=== PATIENT | female | born 1955 | race Two or more races ===

== ENCOUNTER 2019-05-01 06:19 | Emergency (ER) | payer OTHER ==
[~2019-05-01] VITALS: Ht 157.5 cm; Wt 68.0 kg
[~2019-05-01 06:19] MED LIST: HYZAAR 100-251 UDTAB PO; JANUVIA25 MG PO; LAMICTAL100 MG PO; LIPITOR40 MG PO; PLAVIX75 MG PO; PREVACID30 MG PO; RESTORIL30 MG PO; SYNTHROID50 MCG PO; TOPROL XL50 MG PO
[2019-05-01] MEDS ORDERED: METFORMIN HCL500 M2 (06:39)
[2019-05-01] MEDS ORDERED: ZESTORETIC 20-1 EAC1 (06:39)
[2019-05-01] MEDS ORDERED: TRADJENTA5 MG (06:40)
[2019-05-01] MEDS ORDERED: SEROQUEL PO (06:41)
[2019-05-01] MEDS ORDERED: BONIVA150 MG (06:42)
[2019-05-01] MEDS ORDERED: LYRICA100 MG (06:42)
== END 2019-05-01 17:01 | disposition home or self-care (01) ==
LOC: ER 06:19 → CPU-OBS 06:34 → ER 06:34
DX: R07.89 Other chest pain (principal)

== ENCOUNTER 2019-11-02 12:33 | Emergency (ER) | payer OTHER ==
[~2019-11-02] VITALS: Ht 157.5 cm; Wt 63.5 kg
[~2019-11-02 12:33] MED LIST changes: +BONIVA150 MG; +LYRICA100 MG; +METFORMIN HCL500 M2; +SEROQUEL PO; +TRADJENTA5 MG; +ZESTORETIC 20-1 EAC1
[2019-11-02] MEDS ORDERED: TOPROL XL100 M1 (12:58)
== END 2019-11-02 20:08 | disposition home or self-care (01) ==
LOC: ER 12:33
DX: R42 Dizziness and giddiness (principal)

== ENCOUNTER → 2022-10-29 | Outpatient (CLI) | payer OTHER ==
[~2022-10-29] MED LIST changes: +ANTIVERT25 M2 PO; +BAYER PO; +CARVEDILOL6.25 M1 PO; +NASAL MIST126 ML; +SIMVAST PO; +TOPROL XL100 M1; +TRIJARDY XR 101 EACH PO
== END | disposition home or self-care (01) ==
LOC: NUCLEAR 13:00
PROVIDERS: ATTEND Internal Medicine Cardiovascular Disease
DX: G30.9 Alzheimer's disease, unspecified (principal); E11.9 Type 2 diabetes mellitus without complications; I10 Essential (primary) hypertension; E78.2 Mixed hyperlipidemia
CPT/HCPCS: 78803; A9557

== ENCOUNTER 2022-11-03 06:30 | Day surgery (SDC) | payer OTHER ==
[~2022-11-03] VITALS: Ht 157.5 cm; Wt 64.0 kg
== END 2022-11-03 12:20 | disposition home or self-care (01) ==
LOC: CIR.AMB 06:30
PROVIDERS: ATTEND Orthopaedic Surgery Hand Surgery
DX: M19.041 Primary osteoarthritis, right hand (principal); I10 Essential (primary) hypertension; Z20.822 Contact with and (suspected) exposure to COVID-19; E11.9 Type 2 diabetes mellitus without complications

== ENCOUNTER → 2022-11-17 | Outpatient (CLI) | payer OTHER | END | disposition home or self-care (01) | LOC: RAD 15:41 | PROVIDERS: ATTEND Orthopaedic Surgery Hand Surgery | DX: M19.041 Primary osteoarthritis, right hand (principal) ==

== ENCOUNTER 2023-01-12 05:55 | Day surgery (SDC) | payer OTHER ==
[~2023-01-12] VITALS: Ht 157.5 cm; Wt 64.4 kg
[~2023-01-12 05:55] MED LIST changes: +TOPROL XL50 M1 PO
== END 2023-01-12 12:20 | disposition home or self-care (01) ==
LOC: CIR.AMB 05:55
PROVIDERS: ATTEND Orthopaedic Surgery Hand Surgery
DX: M19.042 Primary osteoarthritis, left hand (principal); E11.9 Type 2 diabetes mellitus without complications; E78.00 Pure hypercholesterolemia, unspecified; Z20.822 Contact with and (suspected) exposure to COVID-19; I10 Essential (primary) hypertension

== ENCOUNTER 2024-02-05 16:26 | Emergency (ER) | payer OTHER ==
[~2024-02-05] VITALS: Ht 160 cm; Wt 59.0 kg
[2024-02-05] MEDS ORDERED: PEPCID AC20 MG PO (16:47)
[2024-02-05] MEDS ORDERED: ARICEPT10 MG (16:47)
[2024-02-05] MEDS ORDERED: COZAAR25 MG (16:47)
[2024-02-05] MEDS ORDERED: GRALISE600 MG PO (16:48)
[2024-02-05] MEDS ORDERED: CLEVIDIPINE BUTYRATE 50 MG/100 ML VIAL IV SCH (17:00)
[2024-02-05] MEDS ORDERED: FAMOtidine 10 MG/ML (4ML VIAL) IV ONE (17:15)
[2024-02-05] MEDS ORDERED: 0.9 % SODIUM CHLORIDE 1,000 ML IV ONE (17:15)
[2024-02-05 17:23] LABS: HEMATOCRIT 41.3 % (36.0-45.00); HEMOGLOBIN 14.1 g/dL (12.0-15.00); MEAN CELL VOLUME 79.4 fL (80.00-100.00); MEAN CORPUSCULAR HEMOGLOBIN 27.1 pg (27.00-32.0); MEAN CORPUSCULAR HGB CONC 34.1 g/dl (32.0-36.0); PLATELET COUNT 385 K/uL (150-450); RED CELL DISTRIBUTION WIDTH 15.8 % (11.5-14.5)
[2024-02-05 17:49] LABS: INR 0.96; PARTIAL THROMBOPLASTIN TIME 26.8 SECONDS (22.0-34.0); PROTHROMBIN TIME 10.5 SECONDS (9.0-11.5)
[2024-02-05 17:54] LABS: ALBUMIN 4.2 gm/dL (3.4-5.0); BILIRUBIN TOTAL 0.44 mg/dL (0.3-1.2); CALCIUM 9.9 mg/dL (8.5-10.1); CREATININE SERUM 0.74 mg/dL (0.55-1.02); GFR 77.59; GLOBULINA 3.2 G/DL (2.4-3.5); POTASSIUM 3.68 mEq/L (3.5-5.1); TOTAL PROTEIN 7.4 gm/dL (6.4-8.2)
[2024-02-05 18:54] LABS: URINE APPEARANCE Clear; URINE BILIRRUBIN Negative (NEGATIVE); URINE BLOOD Negative; URINE COLOR Yellow; URINE KETONE 15 (NEGATIVE); URINE LEUKOCYTE Negative; URINE NITRATE Negative; URINE PROTEIN Trace (NEGATIVE); URINE UROBILINOGEN 0.2 E.U./dl
[2024-02-05 18:56] LABS: URINE BACTERIA 22.6 uL (0.0-1933)
[2024-02-05 18:59] LABS: URINE EPITHELIAL CELLS 0.7 uL (0.0-38.8); URINE GLUCOSE >=1000 MG/DL (NEGATIVE); URINE RBC 0.6 uL (0.0-20.8)
[2024-02-05] MEDS ORDERED: ACETAMINOPHEN 500 MG GEL..CAP PO STA (19:23)
[2024-02-05 19:30] LABS: ABG PO2 89.1 mmHg (80-100); ABG pCO2 39.4 mmHg (35-45); BASE EXCESS 0.7 mmol/l; Tco2 26.2 mmol/l
[2024-02-05 20:18] LABS: allen test SATISFACTORY; o2 28 %; puncture site RADIAL LEFT
[2024-02-05] MEDS ORDERED: LOSARTAN POTASSIUM 25 MG TABLET PO ONE (21:30)
[2024-02-05] MEDS ORDERED: BUTALB/ACETAMINOPHEN/CAFFEINE 1 TAB TABLET PO ONE (21:30)
[2024-02-05] MEDS ORDERED: BUTALB-ACETAMI1 EACH PO (22:24)
== END 2024-02-05 22:45 | disposition home or self-care (01) ==
LOC: ER 16:27
PROVIDERS: General Practice
DX: I10 Essential (primary) hypertension (principal)
CPT/HCPCS: 36415; 70450; 71045; 96365; 99284; J3490; J7030

== ENCOUNTER 2024-06-14 10:27 | Emergency (ER) | payer OTHER ==
[~2024-06-14] VITALS: Ht 157.5 cm; Wt 54.4 kg
[~2024-06-14 10:27] MED LIST changes: +ARICEPT10 MG; +BUTALB-ACETAMI1 EACH PO; +COZAAR25 MG; +GRALISE600 MG PO; +PEPCID AC20 MG PO
[2024-06-14] MEDS ORDERED: FAMOTIDINE/PF 20 MG in 0.9 % SODIUM CHLORIDE 8 ML IV PUSH STA (10:47)
[2024-06-14] MEDS ORDERED: ONDANSETRON HCL 2 MG/ML VIAL ONE (10:57)
[2024-06-14] MEDS ORDERED: ENALAPRILAT DIHYDRATE 1.25 MG/ML VIAL IV ONE (10:57)
[2024-06-14] MEDS ORDERED: FAMOTIDINE/PF 20 MG/2 ML VIAL ONE (10:57)
[2024-06-14] MEDS ORDERED: ENALAPRILAT DIHYDRATE 2.5 MG/2 ML VIAL IV ONE (11:00)
[2024-06-14] MEDS ORDERED: ONDANSETRON HCL 2 MG/ML VIAL IV ONE (11:00)
[2024-06-14] MEDS ORDERED: 0.9 % SODIUM CHLORIDE 1,000 ML IV SCH (11:00)
[2024-06-14 11:43] LABS: HEMATOCRIT 41.9 % (36.0-45.00); HEMOGLOBIN 14.1 g/dL (12.0-15.00); MEAN CELL VOLUME 79.7 fL (80.00-100.00); MEAN CORPUSCULAR HEMOGLOBIN 26.8 pg (27.00-32.0); MEAN CORPUSCULAR HGB CONC 33.6 g/dl (32.0-36.0); PLATELET COUNT 318 K/uL (150-450); RED BLOOD COUNT 5.25 M/uL (4.00-6.00)
[2024-06-14 13:36] LABS: BILIRUBIN TOTAL 0.57 mg/dL (0.3-1.2); CALCIUM 10.5 mg/dL (8.5-10.1); CREATININE SERUM 0.88 mg/dL (0.55-1.02); GFR 63.52; GLOBULINA 3.3 G/DL (2.4-3.5); POTASSIUM 4.74 mEq/L (3.5-5.1); TOTAL PROTEIN 7.3 gm/dL (6.4-8.2)
[2024-06-14] MEDS ORDERED: ONDANSETRON ODT8 MG PO (14:56)
[2024-06-14] MEDS ORDERED: PEPCID AC20 MG PO (14:56)
[2024-06-14] MEDS ORDERED: BUTALB/ACETAMINOPHEN/CAFFEINE 1 TAB TABLET PO ONE (15:21)
== END 2024-06-14 15:23 | disposition home or self-care (01) ==
LOC: ER 10:27
PROVIDERS: General Practice
DX: I10 Essential (primary) hypertension (principal)
CPT/HCPCS: 36415; 96365; 96366; 99282; J2405; J3490; J7030

== ENCOUNTER 2025-03-19 21:11 | Emergency (ER) | payer OTHER ==
[~2025-03-19] VITALS: Ht 177.8 cm; Wt 59.9 kg
[~2025-03-19 21:11] MED LIST changes: +ONDANSETRON ODT8 MG PO
[2025-03-19] MEDS ORDERED: FAMOTIDINE/PF 20 MG/2 ML VIAL ONE (22:26)
[2025-03-19] MEDS ORDERED: ONDANSETRON HCL 2 MG/ML VIAL ONE (22:26)
[2025-03-19] MEDS ORDERED: LABETALOL HCL 100 MG/20 ML ML ONE (22:29)
[2025-03-19] MEDS ORDERED: LABETALOL HCL 20MG/4ML SYRINGE IV ONE (22:30)
[2025-03-19] MEDS ORDERED: FAMOTIDINE/PF 20 MG in 0.9 % SODIUM CHLORIDE 8 ML IV PUSH ONE (22:30)
[2025-03-19] MEDS ORDERED: ONDANSETRON HCL 2 MG/ML VIAL IV ONE (22:30)
[2025-03-19] MEDS ORDERED: 0.9 % SODIUM CHLORIDE 1,000 ML IV ONE (22:30)
[2025-03-19 23:11] LABS: BASO % 0.3 % (0.1-1.2); EOS # 0.01 (0.04-0.54); EOS % 0.1 % (0.7-7.0); LYMPH # 1.55 (1.18-3.74); LYMPH % 10.8 % (19.3-53.1); MEAN PLATELET VOLUME 11.10 fl (9.4-12.4); MONO # 0.28 (0.24-0.82); MONO % 1.9 % (4.7-12.5); NEUT # 12.43 (1.56-6.13); NEUT % 86.5 % (34.0-71.1); RED CELL DISTRIBUTION WIDTH 13.8 % (11.6-14.4)
[2025-03-20] MEDS ORDERED: MORPHINE SULFATE 4 MG/ML CARTRIDGE IV ONE (01:00)
[2025-03-20] MEDS ORDERED: LABETALOL HCL 20MG/4ML SYRINGE IV ONE (01:45)
[2025-03-20] MEDS ORDERED: METOCLOPRAMIDE HCL 10 MG in DEXTROSE 5 % IN WATER 50 ML IV ONE (04:15)
[2025-03-20] MEDS ORDERED: hydrALAZINE HCL 20 MG VIAL ONE (04:35)
[2025-03-20] MEDS ORDERED: METOCLOPRAMIDE HCL 5 MG/ML VIAL ONE (04:36)
[2025-03-20] MEDS ORDERED: hydrALAZINE HCL 20 MG VIAL IV ONE (04:45)
[2025-03-20] MEDS ORDERED: ACETAMINOPHEN 500 MG GEL..CAP PO ONE (04:56)
[2025-03-20 05:33] LABS: INR 0.97
[2025-03-20 05:38] LABS: ALT/SGPT 27.0 U/L (12-78); AST/SGOT 15.0 U/L (15-37); BILIRUBIN TOTAL 0.35 mg/dL (0.3-1.2); BUN CREA RATIO 18.0 (7.0-25.0); CREATININE SERUM 0.96 mg/dL (0.55-1.02); GFR 57.29; GLOBULINA 3.7 G/DL (2.4-3.5); GLUCOSE FASTING 138.0 mg/dL (65-100); OSMOLALITY SERUM 291.0 MOSM/KG (275-295)
== END 2025-03-20 08:58 | disposition home or self-care (01) ==
LOC: ER 21:11
PROVIDERS: General Practice; Preventive Medicine Public Health & General Preventive Medicine
DX: R11.10 Vomiting, unspecified (principal); I16.0 Hypertensive urgency; R10.11 Right upper quadrant pain; R51.9 Headache, unspecified; I10 Essential (primary) hypertension; E11.9 Type 2 diabetes mellitus without complications; R11.2 Nausea with vomiting, unspecified
CPT/HCPCS: 36415; 76700; 93005; 96365; 96366; 99284; J2270; J2405; J2765; J3490 ×4; J7030